=== PATIENT | female | born 1945 | race Caucasian/White ===

== ENCOUNTER 2017-06-17 15:24 | Inpatient (IN) | payer OTHER, MEDICARE ==
[~2017-06-17] VITALS: Ht 175.3 cm; Wt 115.3 kg
[2017-06-17 15:39] VITALS: BP 141/83
[2017-06-17] MEDS ORDERED: GABAPENTIN300 MG PO (15:56)
[2017-06-17] MEDS ORDERED: CALCITONIN-SAL3.8 ML ALT NARES (15:56)
[2017-06-17] MEDS ORDERED: MYCOSTATIN1 APPLICAT TP (15:58)
[2017-06-17] MEDS ORDERED: ATIVAN0.5 MG PO (16:00)
[2017-06-17] MEDS ORDERED: PERCOCET 10/1 TABLET PO (16:01)
[2017-06-17] MEDS ORDERED: MIRALAX17 GM PO (16:02)
[2017-06-17] MEDS ORDERED: FLEXERIL5 MG PO (16:03)
[2017-06-17] MEDS ORDERED: ASPIR 8181 M1 PO (16:04)
[2017-06-17] MEDS ORDERED: LIPITOR40 MG PO (16:05)
[2017-06-17] MEDS ORDERED: CELEXA20 MG PO (16:05)
[2017-06-17] MEDS ORDERED: FUROSEMIDE40 MG PO (16:06)
[2017-06-17] MEDS ORDERED: LISINOPRIL2.5 MG PO (16:06)
[2017-06-17] MEDS ORDERED: MELOXICAM15 MG PO (16:08)
[2017-06-17] MEDS ORDERED: OMEPRAZOLE40 M1 PO (16:09)
[2017-06-17] MEDS ORDERED: K-DUR20 MEQ PO (16:12)
[2017-06-18 00:12] VITALS: BP 109/72
[2017-06-18 05:14] VITALS: BP 145/67
[2017-06-18 06:05] LABS: HEMOGLOBIN 13.3 G/DL (11.9-15.5); MCH 29.2 PG (29.0-34.0); MCHC 33.3 G/DL (30.0-36.0); MCV 87.7 FL (83-99); PLATELET COUNT 223 K/uL (156-360); RBC DIS.WIDTH-CV 12.8 % (11.8-14.6); RBC DIS.WIDTH-SD 41.3 % (39-53); RED BLOOD COUNT 4.56 M/uL (3.80-5.20); WHITE BLOOD COUNT 9.3 K/uL (4.1-10.2)
[2017-06-18 06:28] LABS: ALBUMIN 3.7 G/DL (3.2-4.8); ALKALINE PHOSPHATASE 138 IU/L (3-129); ALT (GPT) 19 IU/L (3-49); AST (GOT) 12 IU/L (2-34); CHLORIDE 101 MEQ/L (99-109); CREATININE 0.7 MG/DL (0.6-1.3); GFR ESTIMATE (CALCULATED) > 59 mL/min/; GLUCOSE 90 mg/dL (70-99); SODIUM 138 MEQ/L (136-147); TOTAL BILIRUBIN 0.6 MG/DL (0.0-1.0); TOTAL PROTEIN 5.9 G/DL (6.4-8.3); UREA NITROGEN (BUN) 20 mg/dL (9-23)
[2017-06-18 16:31] VITALS: BP 114/67
[2017-06-19 05:04] VITALS: BP 121/73
[2017-06-19 15:38] VITALS: BP 112/67
[2017-06-20 05:51] VITALS: BP 139/78
[2017-06-20 15:59] VITALS: BP 117/66
[2017-06-21 05:22] VITALS: BP 133/75
[2017-06-21 15:45] VITALS: BP 133/74
[2017-06-22 05:31] VITALS: BP 135/73
[2017-06-22 15:25] VITALS: BP 128/71
[2017-06-23 05:21] VITALS: BP 150/86
[2017-06-23 15:56] VITALS: BP 129/78
[2017-06-24 05:54] VITALS: BP 133/72
[2017-06-24 14:51] VITALS: BP 142/70
[2017-06-25 06:05] VITALS: BP 129/64
[2017-06-25 15:01] VITALS: BP 114/67
[2017-06-26 06:02] VITALS: BP 147/77
[2017-06-26] MEDS ORDERED: METAXALONE800 MG PO (08:38)
[2017-06-26] MEDS ORDERED: PERCOCET 5/31 TABLET PO (08:39)
[2017-06-26 15:03] VITALS: BP 126/65
[2017-06-27 06:23] VITALS: BP 129/86
[2017-06-27 06:29] LABS: HEMOGLOBIN 12.8 G/DL (11.9-15.5); MCH 29.2 PG (29.0-34.0); MCHC 32.8 G/DL (30.0-36.0); MCV 88.8 FL (83-99); PLATELET COUNT 197 K/uL (156-360); RBC DIS.WIDTH-CV 12.7 % (11.8-14.6); RBC DIS.WIDTH-SD 41.7 % (39-53); RED BLOOD COUNT 4.39 M/uL (3.80-5.20); WHITE BLOOD COUNT 7.4 K/uL (4.1-10.2)
[2017-06-27 06:55] LABS: ALBUMIN 3.8 G/DL (3.2-4.8); ALKALINE PHOSPHATASE 176 IU/L (3-129); ALT (GPT) 18 IU/L (3-49); AST (GOT) 12 IU/L (2-34); CHLORIDE 105 MEQ/L (99-109); CREATININE 0.8 MG/DL (0.6-1.3); GFR ESTIMATE (CALCULATED) > 59 mL/min/; GLUCOSE 97 mg/dL (70-99); POTASSIUM 4.9 MEQ/L (3.7-5.4); SODIUM 142 MEQ/L (136-147); TOTAL BILIRUBIN 0.5 MG/DL (0.0-1.0); TOTAL PROTEIN 5.8 G/DL (6.4-8.3); UREA NITROGEN (BUN) 10 mg/dL (9-23)
[2017-06-27 15:28] VITALS: BP 124/69
[2017-06-27] MEDS ORDERED: SENNA PLUS TAB1 EACH PO (16:17)
[2017-06-27] MEDS ORDERED: KLOR-CON M1010 MEQ PO (16:17)
[2017-06-27] MEDS ORDERED: MIRALAX17 GM PO (16:17)
[2017-06-28 05:44] VITALS: BP 121/74
== END 2017-06-28 11:15 | disposition home health service (06) | DRG 560 ==
LOC: 3WEST 15:24 → ENPENDDIS 06-28 → 3WEST 06-28 11:15
PROVIDERS: Physical Medicine & Rehabilitation Pain Medicine
PROC: F07M0ZZ Range of Motion and Joint Mobility Treatment of Musculoskeletal System - Whole Body (ICD-10-PCS; principal; 2017-06-17)
DX: S32.038D Other fracture of third lumbar vertebra, subsequent encounter for fracture with routine healing (principal); S32.10XD Unspecified fracture of sacrum, subsequent encounter for fracture with routine healing; R26.9 Unspecified abnormalities of gait and mobility; I11.0 Hypertensive heart disease with heart failure; I50.22 Chronic systolic (congestive) heart failure; G89.29 Other chronic pain; M47.816 Spondylosis without myelopathy or radiculopathy, lumbar region; M48.061 Spinal stenosis, lumbar region without neurogenic claudication; M51.26 Other intervertebral disc displacement, lumbar region; M75.42 Impingement syndrome of left shoulder; M19.90 Unspecified osteoarthritis, unspecified site; D64.9 Anemia, unspecified; E78.5 Hyperlipidemia, unspecified; K21.9 Gastro-esophageal reflux disease without esophagitis; F32.9 Major depressive disorder, single episode, unspecified; F41.9 Anxiety disorder, unspecified; E66.9 Obesity, unspecified; Z68.37 Body mass index [BMI] 37.0-37.9, adult; Z82.49 Family history of ischemic heart disease and other diseases of the circulatory system; Z91.81 History of falling; Z95.2 Presence of prosthetic heart valve
CPT/HCPCS: 80053; 85027; 97110 GO; 97530 GP; J1650